=== PATIENT | male | born 1975 | race African-American/Black ===

== ENCOUNTER 2019-04-14 12:39 | Inpatient (IN) | payer MEDICAID ==
[~2019-04-14] VITALS: Ht 175.3 cm; Wt 69.9 kg
[2019-04-14 14:59] LABS: BASOPHILS % 0.5 % (0.0-2.0); CHLORIDE 107 mEq/L (98-107); EOSINOPHILS % 0.5 % (0.0-5.0); HEMATOCRIT. 39.9 % (42.0-52.0); HEMOGLOBIN. 13.9 g/dL (14.0-18.0); LYMPHOCYTES % 14.8 % (20.0-50.0); MEAN CORPUSCULAR HEMOGLOBIN 32.5 pg (28.0-32.0); MEAN CORPUSCULAR VOLUME 93.3 fL (80.0-94.0); MEAN PLATELET VOLUME 7.9 fl (7.4-10.4); MONOCYTES % 12.9 % (2.0-8.0); NEUTROPHILS % 71.3 % (40.0-76.0); PLATELET 256 x1000/uL (130-400); RED BLOOD CELL COUNT 4.28 mill/uL (4.7-6.1); RED CELL DISTRIBUTION WIDTH 13.1 % (11.6-14.6)
[2019-04-14] MEDS ORDERED: METRONIDAZOLE 500 MG PREMIX 100 ML IV ONE (15:00)
[2019-04-14] MEDS ORDERED: SODIUM CHLORIDE 0.9% 1,000 ML IV ONE (15:00)
[2019-04-14] MEDS ORDERED: KETOROLAC 15MG/ML VIAL IV ONE (15:00)
[2019-04-14] MEDS ORDERED: CEFTRIAXONE 1 G PREMIX 50 ML IV ONE (15:00)
[2019-04-14 16:03] LABS: CLARITY URINE CLEAR (CLEAR); COLOR URINE YELLOW (YELLOW); KETONES URINE TRACE (NEGATIVE); LEUKOCYTE ESTERASE URINE NEGATIVE (NEGATIVE); NITRITE URINE NEGATIVE (NEGATIVE); OCCULT BLOOD URINE NEGATIVE (NEGATIVE); PROTEIN URINE NEGATIVE (NEGATIVE); SPECIFIC GRAVITY URINE 1.024 (1.005-1.030)
[2019-04-14 16:17] LABS: *BARBITURATES SCREEN URINE NEGATIVE (NEGATIVE); *BENZODIAZEPINES SCREEN URINE NEGATIVE (NEGATIVE); *COCAINE SCREEN URINE NEGATIVE (NEGATIVE)
[2019-04-14 16:18] LABS: *AMPHETAMINES SCREEN URINE NEGATIVE (NEGATIVE); CANNABINOID URINE SCREEN PRESUMTIVE POSITIVE (NEGATIVE); METHADONE URINE SCREEN NEGATIVE (NEGATIVE); OPIATES URINE SCREEN NEGATIVE (NEGATIVE); PHENCYCLIDINE URINE SCREEN NEGATIVE (NEGATIVE)
[2019-04-14] MEDS ORDERED: IOHEXOL-300 100 ML BOTTLE ONE (18:05)
[2019-04-14] MEDS ORDERED: DOCUSATE SODIUM 100MG CAPSULE PO PRN (21:15)
[2019-04-14] MEDS ORDERED: ONDANSETRON HCL 4MG/2ML INJ IV PRN (21:15)
[2019-04-14] MEDS ORDERED: LORAZEPAM 0.5MG TABLET PO PRN (21:15)
[2019-04-14] MEDS ORDERED: CLONIDINE 0.1MG TABLET PO PRN (21:15)
[2019-04-14] MEDS ORDERED: PIPERACILLIN/TAZ 3.375G PREMIX 50 ML IV SCH (21:15)
[2019-04-14] MEDS ORDERED: ACETAMINOPHEN 325MG TABLET PO PRN (21:15)
[2019-04-14] MEDS ORDERED: IPRATROPIUM/ALBUTEROL 0.5-3(2.5)MG/3ML NEB INH PRN (21:15)
[2019-04-14] MEDS ORDERED: HYDROMORPHONE HCL/PF 2MG/ML CPJ IV PRN (21:15)
[2019-04-14 22:07] VITALS: BP 131/92
[2019-04-14] MEDS ORDERED: KETOROLAC 15MG/ML VIAL IV PRN (23:31)
[2019-04-14] MEDS ORDERED: DOXY100C42 MT (23:52)
[2019-04-15] VITALS (7 sets, daily range): BP systolic 118–139; BP diastolic 72–84
[2019-04-15] MEDS: PIPERACILLIN/TAZ 3.375G PREMIX 50 ML IV SCH ×4 (00:48→18:40)
[2019-04-15] MEDS ORDERED: VANCOMYCIN 1250MG in DEXTROSE 5% WATER 250ML IV NR (03:00)
[2019-04-15] MEDS: HYDROCODONE/ACETAMINOPHEN 5/325MG TABLET PO PRN ×2 (09:03→13:56)
[2019-04-15] MEDS: VANCOMYCIN 1250MG in DEXTROSE 5% WATER 250ML IV SCH ×2 (09:06→21:49)
[2019-04-15] MEDS ORDERED: HYDROMORPHONE HCL/PF 2MG/ML CPJ IV PRN (15:30)
[2019-04-15] MEDS ORDERED: LIDOCAINE HCL/EPINEPHRINE 1%-EPI 1:100,000 20 ML VIAL INFIL NR (16:00)
[2019-04-16] VITALS: BP 108/66
[2019-04-16] MEDS: PIPERACILLIN/TAZ 3.375G PREMIX 50 ML IV SCH ×4 (01:00→18:17)
[2019-04-16 04:00] VITALS: BP 101/63
[2019-04-16 06:51] LABS: BASOPHILS % 0.5 % (0.0-2.0); EOSINOPHILS % 0.7 % (0.0-5.0); HEMATOCRIT. 37.6 % (42.0-52.0); HEMOGLOBIN. 13.1 g/dL (14.0-18.0); LYMPHOCYTES % 9.9 % (20.0-50.0); MEAN CORPUSCULAR HEMOGLOBIN 32.5 pg (28.0-32.0); MONOCYTES % 13.4 % (2.0-8.0); NEUTROPHILS % 75.5 % (40.0-76.0); PLATELET 251 x1000/uL (130-400); RED BLOOD CELL COUNT 4.05 mill/uL (4.7-6.1); RED CELL DISTRIBUTION WIDTH 12.9 % (11.6-14.6)
[2019-04-16] MEDS: VANCOMYCIN 1250MG in DEXTROSE 5% WATER 250ML IV SCH (06:57)
[2019-04-16 08:00] VITALS: BP 112/63
[2019-04-16 08:25] LABS: CHLORIDE 103 mEq/L (98-107)
[2019-04-16 08:33] LABS: VANCOMYCIN TROUGH 14.9 ug/mL (5.0-10.0)
[2019-04-16] MEDS ORDERED: POTASSIUM CHLORIDE 20MEQ TABLET SR PO SCH (09:30)
[2019-04-16] MEDS: VANCOMYCIN 1 G PREMIX 200 ML IV SCH ×2 (10:06→18:18)
[2019-04-16 12:00] VITALS: BP 112/65
[2019-04-16 16:00] VITALS: BP 123/80
[2019-04-16 20:00] VITALS: BP 121/85
[2019-04-17] VITALS: BP 121/81
[2019-04-17] MEDS: PIPERACILLIN/TAZ 3.375G PREMIX 50 ML IV SCH ×2 (00:18→06:03)
[2019-04-17] MEDS: VANCOMYCIN 1 G PREMIX 200 ML IV SCH ×2 (03:26→10:00)
[2019-04-17 04:00] VITALS: BP 108/64
[2019-04-17 07:50] LABS: BASOPHILS % 0.6 % (0.0-2.0); HEMATOCRIT. 37.7 % (42.0-52.0); HEMOGLOBIN. 13.3 g/dL (14.0-18.0); LYMPHOCYTES % 14.6 % (20.0-50.0); MEAN CORPUSCULAR HEMOGLOBIN 32.5 pg (28.0-32.0); MEAN CORPUSCULAR VOLUME 92.3 fL (80.0-94.0); MEAN PLATELET VOLUME 7.6 fl (7.4-10.4); MONOCYTES % 14.5 % (2.0-8.0); NEUTROPHILS % 68.3 % (40.0-76.0); PLATELET 286 x1000/uL (130-400); RED BLOOD CELL COUNT 4.09 mill/uL (4.7-6.1)
[2019-04-17 08:00] VITALS: BP 121/86
[2019-04-17 08:06] LABS: CHLORIDE 108 mEq/L (98-107)
[2019-04-17 08:11] LABS: HIV SCREEN 4G Non Reactive (Non Reactive)
[2019-04-17 08:15] LABS: VANCOMYCIN TROUGH 24.2 ug/mL (5.0-10.0)
[2019-04-17] MEDS ORDERED: AMOXICILLIN/POTASSIUM CLAVULANATE 875/125MG TAB PO SCH (09:00)
[2019-04-17] MEDS ORDERED: SULFAMETHOXAZOLE/TRIMETHOPRIM 800/160MG TABLET PO SCH (10:30)
[2019-04-17 11:30] VITALS: BP 122/83
== END 2019-04-17 12:05 | disposition home or self-care (01) | DRG 720 ==
LOC: ER 12:39 → 6EST 19:21 → EDBEDREQ 19:42 → EDBEDREQTM 19:42 → ENRESERV 21:10
PROVIDERS: ADMIT Internal Medicine; ATTEND Internal Medicine
PROC: 0V95XZZ Drainage of Scrotum, External Approach (ICD-10-PCS; principal; 2019-04-15)
DX: A41.9 Sepsis, unspecified organism (principal); L02.215 Cutaneous abscess of perineum; N49.2 Inflammatory disorders of scrotum; D64.9 Anemia, unspecified; F17.210 Nicotine dependence, cigarettes, uncomplicated; D72.821 Monocytosis (symptomatic)
CPT/HCPCS: 36415; 74177; 80048; 80202; 80305; 83605; 84145; 87070; 87389; 96365; 96368; 96375; 99285; J0696; J1170; J1885; J2543; J3370; J3490; J7060; Q9967